=== PATIENT | male | born 1980 | race Asian ===

== ENCOUNTER 2022-12-25 10:47 | Inpatient (IN) ==
[2022-12-25 11:53] LABS: Basophils # (auto) 0.09 K/uL (0.00-0.20); Basophils % (auto) 0.6 %; Eosinophils # (auto) 0.36 K/uL (0.00-0.50); Eosinophils % (auto) 2.5 %; Hematocrit (blood only) 44.1 % (42.0-52.0); Hemoglobin 15.6 g/dl (14.0-18.0); Immature Granulocytes # (auto) 0.06 K/uL (0.01-0.20); Immature Granulocytes % (auto) 0.4 %; Lymphocytes % (auto) 15.3 %; Mean Corpuscular Hemoglobin 31.7 pg (25.0-34.0); Mean Corpuscular Hgb Conc 35.4 g/dL (32.0-36.0); Mean Corpuscular Volume 89.6 fL (80.0-100.0); Mean Platelet Volume 9.3 fL (9.4-12.4); Monocytes # (auto) 0.77 K/uL (0.11-0.59); Monocytes % (auto) 5.4 %; Neutrophils # (auto) 10.87 K/uL (1.40-6.50); Neutrophils % (auto) 75.8 %; Platelet Count 285 K/uL (130-400); RDW Coefficient of Variation 12.5 % (11.5-14.5); RDW Standard Deviation 41.4 fL (36.4-46.3); Red Blood Count 4.92 M/uL (4.70-6.10); White Blood Count 14.35 K/ul (4.8-10.8)
[2022-12-25 12:04] LABS: Albumin Globulin Ratio 1.8 (0.9-2); Albumin Level 4.6 gm/dl (3.4-5.0); BUN Creatinine Ratio 18.8 (10-20); Bilirubin,Total 0.9 mg/dl (0.2-1.0); Calcium 9.6 mg/dl (8.6-10.3); Creatinine Clr Calc Pharmacy 134.7 ml/min; Est GFR (African American) 129.5 ml/min; Est GFR (Non-African American) 111.7 ml/min; Globulin 2.5 gm/dl (2.5-4.0); Potassium 3.9 mmol/L (3.5-5.1); Total Protein 7.1 gm/dl (6.0-8.3)
[2022-12-25] MEDS ORDERED: OPTIRAY 320 100ml IV ONE (13:07)
--- NOTE | 2022-12-25 13:10 | Emergency Department Note ---
Impression & Plan Diverticulitis, Abscess of sigmoid colon ED Provider Note NAME: KARLA KUMARI AGE: 41 SEX: M ARRIVES VIA: Walk-In INFORMANT: Patient, ED PROVIDER(S): Maranda Mendenhall MD CHIEF COMPLAINT: Right lower quadrant pain PLAN: Disposition: Admission Condition: Good Outpatient prescription management: None Referral: MEDICAL DECISION MAKING: This is a 41-year-old male presents for lower quadrant pain. Patient referred from [facility]. Patient has voluntary guarding bilateral quadrant to palpation. Concern for appendicitis with patient's blood work showing leukocytosis to 14 at this time. Patient not tachycardic hypotensive or febrile. We will proceed with CT abdomen/pelvis to rule out appendicitis versus other intra-abdominal pathology. Patient CT imaging reveals a diverticulitis as well as colonic abscess, small. Discussed with Dr. Strong, general surgery who recommends admission for IV antibiotics. Discussed with hospitalist for admission of diverticulitis and colonic abscess. Patient made aware of findings. Triage Nursing notes reviewed and agree them. Additional history obtained from Prior medical records reviewed Vital Signs: reviewed and remarkable for no significant abnormalities Differential diagnosis: Appendicitis, diverticulitis, SBO, pancreatitis, cholecystitis ER treatment provided: Antibiotics Diagnostics interpreted by me: ECG: None Cardiac Monitoring: None Laboratory studies: See below Imaging studies: See below Consultation(s): toya Strong HPI: 41/M arrives for evaluation of bilateral quadrant pain. Patient notes that last night he was cooking dinner when he started noticing a slight pain in his right lower quadrant. He notes that it was worse with movement. Progressively worsened to the point where he sought medical help this morning at [facility]. They sent him here for further evaluation. Patient has he has had no diarrhea, nausea or vomiting. He does note pain getting worse, worse with movement as previously stated, not worse with urination. No hematuria that he is noted. No dysuria. No flank pain or back pain. No chest pain, shortness of breath ROS: See above HPI for pertinent positives & negatives. A total of 10 systems reviewed and were otherwise negative. PAST MEDICAL HISTORY:See Below PAST SURGICAL HISTORY:See Below FAMILY HISTORY:See Below SOCIAL HISTORY:See Below HOME MEDICATIONS:See Below ALLERGIES:See Below VITALS:See Below PHYSICAL EXAMINATION: General: resting comfortably in no acute distress Head: Normocephalic and atraumatic Eyes: Normal inspection, extraocular muscles intact, no conjunctival pallor Ear, nose, throat: Normal external exam Neck: Normal range of motion Respiratory: Patient is in no respiratory distress, lungs clear to auscultation bilaterally Cardiovascular: RRR without murmur appreciated GI: Soft, right lower quadrant tenderness with guarding, no rebound Extremities: pulses intact with good cap refills, no LE pitting edema or calf tenderness Neuro: The patient awake and alert, appropriately conversive,no focal decifits Skin: Warm, dry, and intact Maranda Mendenhall MD Past Med/Surg History Medical History No significant past medical history Surgical History No significant past surgical history Social History (Updated 04/01/21 @ 21:04 by Zuhair Barbosa) Smoking Status: Current every day smoker Tobacco Type: Cigarettes marital status: Single Feels Safe at Home: Yes Allergies Allergies Allergy/AdvReac Type Severity Reaction Status Date / Time No Known Allergies Allergy Unverified 12/25/22 15:23 Home Meds Home Medications Medication Instructions Recorded Confirmed alprazolam 0.5 mg tablet 0.5 mg PO DAILY PRN Anxiety 12/25/22 12/25/22 buspirone 5 mg tablet 5 mg PO AMHS 12/25/22 12/25/22 fluoxetine 40 mg capsule 40 mg PO QAM 12/25/22 12/25/22 Results & Data (ED) Vital Signs Vital Signs - 24 hr 12/25/22 11:12 12/25/22 13:41 12/25/22 15:43 Temperature 36.3 C L Temperature Source Temporal Artery Scan Pulse Rate 62 Pulse Rate [Right Finger] 67 97 H Pulse Rhythm [Right Finger] Regular Pulse Strength [Right Finger] Normal Respiratory Rate 18 18 18 Respiratory Effort / Characteristics Non-Labored Non-Labored Spontaneous Respiratory Depth Normal Normal Respiratory Pattern Regular Regular Blood Pressure 115/80 Blood Pressure [Right Arm] 133/65 120/78 Blood Pressure Mean 91 Blood Pressure Mean [Right Arm] 87 92 Blood Pressure Position [Right Arm] Lying Pulse Oximetry 98 98 98 Oxygen Delivery Method Room Air Room Air Room Air Sepsis Recent Fever Within 48 Hours No Sepsis New/Unexplained Change in Mental Status N/A Sepsis Action Taken by Nursing No Action Required Laboratory Data 12/25/22 11:27 12/25/22 11:27 Lab Results 12/25/22 12/25/22 12/25/22 Range/Units 11:27 11:27 13:03 WBC 14.35 H (4.8-10.8) K/ul RBC 4.92 (4.70-6.10) M/uL Hgb 15.6 (14.0-18.0) g/dl Hct 44.1 (42.0-52.0) % MCV 89.6 (80.0-100.0) fL MCH 31.7 (25.0-34.0) pg MCHC 35.4 (32.0-36.0) g/dL RDW Std Deviation 41.4 (36.4-46.3) fL RDW Coeff of Esteban 12.5 (11.5-14.5) % Plt Count 285 (130-400) K/uL MPV 9.3 L (9.4-12.4) fL Immature Gran % (Auto) 0.4 % Neut % (Auto) 75.8 % Lymph % (Auto) 15.3 % [place] % (Auto) 5.4 % Eos % (Auto) 2.5 % Baso % (Auto) 0.6 % Neut # (Auto) 10.87 H (1.40-6.50) K/uL Lymph # (Auto) 2.20 (1.20-3.40) K/uL [place] # (Auto) 0.77 H (0.11-0.59) K/uL Eos # (Auto) 0.36 (0.00-0.50) K/uL Baso # (Auto) 0.09 (0.00-0.20) K/uL Immature Gran # (Auto) 0.06 (0.01-0.20) K/uL Sodium 140 (136-145) mmol/L Potassium 3.9 (3.5-5.1) mmol/L Chloride 107 (98-107) mmol/L Carbon Dioxide 29 (21-32) mmol/L Anion Gap 4 (3-11) BUN 15 (6-23) mg/dl Creatinine 0.80 (0.6-1.4) mg/dl Est Cr Clr Drug Dosing 134.7 ml/min Est GFR ( Amer) 129.5 ml/min Est GFR (Non-Af Amer) 111.7 ml/min BUN/Creatinine Ratio 18.8 (10-20) Glucose 111 H (70-99(Fasting)) mg/dl Calcium 9.6 (8.6-10.3) mg/dl Total Bilirubin 0.9 (0.2-1.0) mg/dl AST 21 (13-39) U/L ALT 19 (7-52) U/L Alkaline Phosphatase 57 (34-104) U/L Total Protein 7.1 (6.0-8.3) gm/dl Albumin 4.6 (3.4-5.0) gm/dl Globulin 2.5 (2.5-4.0) gm/dl Albumin/Globulin Ratio 1.8 (0.9-2) Lipase 16 (11-82) U/L Urine Color Dark Yellow Urine Appearance Clear (Clear) Urine pH 6.5 (4.5-7.5) Ur Specific [place] 1.025 (1.000-1.030) Urine Protein Negative (Negative) Urine Glucose (UA) Negative (Negative) Urine Ketones Trace H (Negative) Urine Blood Trace H (Negative) Urine Nitrite Negative (Negative) Urine Bilirubin Negative (Negative) Urine Urobilinogen Negative (Negative) Ur Leukocyte Esterase Negative (Negative) Urine WBC (Auto) 1-5 (0-5) /hpf Urine RBC (Auto) 10-30 H (0-4) /hpf U Hyaline Cast (Auto) 1-5 (0-5) /lpf U Epithel Cells (Auto) >30 H (0-5) /lpf Urine Bacteria (Auto) Negative (Negative) Administered Medications Nicotine (Nicotine 21 Mg/24 Hr Tdsy) 21 mg TD QAM MARCOS Stop: 01/24/23 14:59 Last Admin: 12/25/22 15:39 Dose: 21 mg Documented By: POLY Discontinued Medications Ceftriaxone Sodium (Ceftriaxone Sodium 2000mg/50ml D5w) 2,000 mg IV ONE STA Stop: 12/25/22 15:52 Last Admin: 12/25/22 16:04 Dose: 2,000 mg Documented By: POLY Metronidazole (Flagyl) 500 mg in 100 mls @ 100 mls/hr IV NOW STA Stop: 12/25/22 15:35 Last Infusion: 12/25/22 16:49 Dose: 0 mls/hr Documented By: Admin: 12/25/22 15:41 Dose: 100 mls/hr Documented By: POLY Acetaminophen (Ofirmev) 1,000 mg in 100 mls @ 400 mls/hr IV NOW STA Stop: 12/25/22 15:38 Last Infusion: 12/25/22 16:33 Dose: 0 mls/hr Documented By: Admin: 12/25/22 15:38 Dose: 400 mls/hr Documented By: POLY Ioversol (Optiray 320 100ml) 90 ml IV ONCE ONE Stop: 12/25/22 13:08 Last Admin: 12/25/22 13:07 Dose: 90 ml Documented By: XIMENA Imaging Data Radiologist's Impression: Abdomen/Pelvis CT 12/25/22 11:52 CT abd pelvis IV con only CLINICAL HISTORY: RLQ pain, gauding TECHNIQUE: Helical axial images of the abdomen and pelvis were obtained and displayed. Automated dose lowering techniques and/or adjustment according to patient size were utilized for this exam. This exam was performed with intravenous contrast. CT DOSE: 1121.73 mGy.cm COMPARISON: None available at the time of this dictation. FINDINGS: Lower chest: No acute abnormality. Liver: Unremarkable. No focal lesions are seen. Gallbladder and biliary tree: The gallbladder is contracted. No intra- or extrahepatic biliary ductal dilation. Pancreas: Unremarkable, no focal lesions. Spleen: Splenule is incidentally noted. Adrenals: Unremarkable. Kidneys and ureters: Unremarkable. Bladder: Limited evaluation due to underdistention. Reproductive organs: Unremarkable. Bowel: There is focal wall thickening in the cecum. Numerous diverticula are seen in the ascending colon. The appendix is normal. Lymph nodes Retroperitoneal: Unremarkable. Pelvic: Unremarkable. Mesenteric: Subcentimeter nodes are seen most prominently in the right lower quadrant. Peritoneum: Fat stranding is noted in the right lower quadrant. There is a fluid collection in the region of the lateral wall of the cecum measuring approximately 19 x 24 mm in diameter. No evidence of pneumoperitoneum. Vessels: Unremarkable. Abdominal wall: Unremarkable. Bones: Unremarkable. IMPRESSION: Wall thickening and numerous diverticula in the cecum compatible with cecal diverticulitis. There may be a small abscess in the lateral colon wall versus atypical appearance of inflamed colonic. No griffin perforation. The appendix is normal. ACT 112: Negative or not required by law. Electronically signed by: Calvin Aguillon M.D. 12/25/2022 2:20 PM Discharge Plan Visit Data Chief Complaint: Abdominal Pain Stated Complaint: [facility] REFERRED, R SIDED ABDOMINAL PAIN ED Provider: Maranda Mendenhall Discharge Problem: Diverticulitis, Abscess of sigmoid colon Forms Stand Alone Forms: My [facility] Prescriptions Prescriptions: No Action fluoxetine 40 mg capsule 40 mg PO QAM buspirone 5 mg tablet 5 mg PO AMHS alprazolam 0.5 mg tablet 0.5 mg PO DAILY PRN (Reason: Anxiety) Referrals Referrals: Wilfrido Ramirez DO [Primary Care Provider] -
[2022-12-25 13:21] LABS: Appearance Urine Clear (Clear); Bacteria Urine Automated Negative (Negative); Bilirubin Urine Negative (Negative); Blood Urine Trace (Negative); Color Urine Dark Yellow; Epithelial Cell Urine Auto >30 /lpf (0-5); Glucose Urine UA Negative (Negative); Ketones Urine Trace (Negative); Leukocyte Esterase Urine Negative (Negative); Nitrite Urine Negative (Negative); Protein Urine Negative (Negative); Specific Gravity Urine 1.025 (1.000-1.030); Urobilinogen Urine Negative (Negative); pH Urine 6.5 (4.5-7.5)
--- NOTE | 2022-12-25 14:22 | CT Scan Report ---
CT abd pelvis IV con only CLINICAL HISTORY: RLQ pain, gauding TECHNIQUE: Helical axial images of the abdomen and pelvis were obtained and displayed. Automated dose lowering techniques and/or adjustment according to patient size were utilized for this exam. This e xam was performed with intravenous contrast. CT DOSE: 1121.73 mGy.cm COMPARISON: None available at the time of this dictation. FINDINGS: Lower chest: No acute abnormality. Liver: Unremarkable. No focal lesions are seen. Gallbladder and biliary tree: The gallbladder is contracted. No intra- or extrahepatic biliary ductal dilation. Pancreas: Unremarkable, no focal lesions. Spleen: Splenule is incidentally noted. Adrenals: Unremarkable. Kidneys and ureters: Unremarkable. Bladder: Limited evaluation due to underdistention. Reproductive organs: Unremarkable. Bowel: There is focal wall thickening in the cecum. Numerous diverticula are seen in the ascending co je. The appendix is normal. Lymph nodes Retroperitoneal: Unremarkable. Pelvic: Unremarkable. Mesenteric: Subcentimeter nodes are seen most prominently in the right lower quadrant. Peritoneum: Fat stranding is noted in the right lower quadrant. There is a fluid collection in the re gion of the lateral wall of the cecum measuring approximately 19 x 24 mm in diameter. No evidence of pneumoperitoneum. Vessels: Unremarkable. Abdominal wall: Unremarkable. Bones: Unremarkable. IMPRESSION: Wall thickening and numerous diverticula in the cecum compatible with cecal diverticulitis. There may be a small abscess in the lateral colon wall versus atypical appearance of inflamed colonic. No bridget k perforation. The appendix is normal. ACT 112: Negative or not required by law. Electronically signed by: Calvin Aguillon M.D. 12/25/2022 2:20 PM
[2022-12-25] MEDS ORDERED: cefTRIAXone SODIUM 2,000 MG in DEXTROSE 5 % MINI-B 50 ML IV STA (14:36)
[2022-12-25] MEDS ORDERED: metroNIDAZOLE 500 MG/100 ML BAG IV STA (14:36)
[2022-12-25] MEDS ORDERED: NICOTINE 21 MG/24 HR TDSY TD SCH (15:00)
[2022-12-25] MEDS ORDERED: ACETAMINOPHEN 1,000 MG/100 ML VIAL IV STA (15:24)
[2022-12-25] MEDS ORDERED: cefTRIAXone SODIUM 2000MG/50ML D5W IV STA (15:51)
[2022-12-25] MEDS ORDERED: LACTATED RINGER'S 1,000 ML IV SCH (18:45)
[2022-12-25] MEDS ORDERED: HYDROmorphone INJ 0.5 MG/0.5 ML SYR IV STA (19:04)
[2022-12-25] MEDS ORDERED: ONDANSETRON INJ 2 MG/ML 2 ML VIAL IV PRN (19:24)
[2022-12-25] MEDS ORDERED: PIPER/TAZO 4.5g in D5W MINI-B 100 ML IV ONE (19:30)
[2022-12-25] MEDS ORDERED: PIPERACILLIN/TAZOBACTAM 4.5 GM in DEXTROSE 5% MINI-B 100 ML IV SCH (19:30)
[2022-12-25] MEDS: ENOXAPARIN INJ 40 MG/0.4 ML SYR SQ SCH (19:55)
--- NOTE | 2022-12-25 21:57 | History & Physical Report ---
Date of Service December 25, 2022 Assessment & Plan (1) Diverticulitis: (2) Abscess of sigmoid colon: (3) Anxiety: (4) Bipolar 2 disorder: (5) Prediabetes: Plan Mr. Barahona is a 41 year old gentleman with history of bipolar d/o/anxiety, current tobacco use, prediabetes, who is admitted for management and eval of diverticulitis with abscess formation. Patient is pain free at time of exam and endorses appetite. ED reports discussion with general surgery, no acute surgical indications. #Diverticulitis c/b abscess formation #Leukocytosis -CT without signs of appendicitis, details above -appears well, non toxic, leukocytosis likely secondary to ongoin inflammation -Continue IV abx with zosyn -Gastro and gen surg consults for recommendations regarding next interventions, duration of abx, follow up imaging, ?scope indications #Anxiety #Bipolar -Continue prozac, buspar, and prn alprazolam #Prediabetes -Stable, no idication for SSI at this time #Tobacco use -Nicoderm patch 14 daily given daily 1/2 pack use -Patient would like to discuss additional therapies for cessation upon DC DVT lovenox Lytes prn CLD Bowel regimen prn Admit to med/surg I spent a total of 60 minutes coordinating, documenting, and providing care for this patient excluding time spent in the performance of separately billed services. Admission and Anticipated Discharge Date Admission Date: December 25, 2022 History of Present Illness Chief Complaint: Abdominal pain, diverticulitis Primary Care Provider: Wilfrido Ramirez DO Mr. Barahona is a 41 year old gentleman with history of bipolar d/o/anxiety, current tobacco use, prediabetes, who presented to [facility] ED due to acute onset abdominal pain that started the evening of 12/25. Patient states he was in usual stated of health when he noted a sharp, predominately RLQ pain. 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 He denies any changes to his bowel habits, stating all of his stools have been "normal." He denies any bloody output, to include melena, hematochezia. He denies nausea or vomiting, or any infectious concerns for that matter. Patient denies ever having cscope or egd. Upon arrival to ED, patient's VS were stable. Labs revealed leukocytosis to 14.35. CT AP revealed fat stranding in RLQ, with a fluid collection in lateral wall of cecum 19x24 mm, appendix appeared normal. Surgery was consulted, who felt there was no urgent need for surgery per ED provider--and to manage patient for diverticulitis. s/p CTX and flagyl Patient to be admitted for IV abx and further management of diverticulitis with abscess formation Allergies Allergy/AdvReac Type Severity Reaction Status Date / Time No Known Allergies Allergy Unverified 12/25/22 15:23 Home Medications Medication Instructions Recorded Confirmed Type alprazolam 0.5 mg tablet 0.5 mg PO DAILY PRN Anxiety 12/25/22 12/25/22 History buspirone 5 mg tablet 5 mg PO AMHS 12/25/22 12/25/22 History fluoxetine 40 mg capsule 40 mg PO QAM 12/25/22 12/25/22 History Past Med/Surg History Medical History (Updated 12/25/22 @ 21:56 by Loreta Bahena MD) Anxiety Bipolar 2 disorder Prediabetes Surgical History No significant past surgical history Family History (Updated 12/25/22 @ 21:59 by Loreta Bahena MD) Other Heart disease Hypertension Social History Smoking Status: Current every day smoker Tobacco Type: Cigarettes marital status: Single Feels Safe at Home: Yes Review of Systems Review of Systems: Constitutional: (-) fever/chills, (-) recent loss of weight, (-) appetite changes, (-) night sweats. Head: (-) headache, (-) dizziness. Eye: (-) blurring of vision, (-) double vision, (-) redness. Ear: (-) hearing loss, (-) discharge, (-) vertigo Nose: (-) discharge, (-) bleeding, (-) congestion, (-) post nasal drip. Throat: (-) sore throat, (-) hoarseness of voice, (-) odynophagia. Cardiovascular: (-) chest pain, (-) palpitations, (-) syncope, (-) orthopnea, (- ) PND, (-) leg swelling. Respiratory: (-) shortness of breath, (-) cough, (-) wheezing, (-) hemoptysis. Neuro: (-) weakness in extremities, (-) numbness, (-) tingling, (-) tremor. Gastrointestinal: (+) belly pain, (-) belly distension, (-) nausea, (-) vomiting, (-) diarrhea, (-) constipation, (-) hematemesis, (-) hematochezia, (-) bowel incontinence Genitourinary: (-) hematuria, (-) dysuria, (-) polyuria, (-) hesitancy, (-) frequency, (-) urinary incontinence. Musculoskeletal: (-) myalgia, (-) arthralgia. Skin: (-) rashes. Endocrine: (-) heat/cold intolerance. Physical Exam Physical Exam: GENERAL APPEARANCE: AxOx4, flat effect HEENT: NC, AT. MMM. EOMI, clear conjunctiva, oropharynx clear. NECK: Supple without lymphadenopathy. No stiffness or restricted ROM. HEART: Normal rate and regular rhythm, normal S1/S1, no m/r/g LUNGS: CTAB, moving air well. No crackles or wheezes are heard. ABDOMEN: Soft, nontender, nondistended with good bowel sounds heard. BACK: No CVAT, no obvious deformity. EXTREMITIES: Without cyanosis, clubbing or edema. NEUROLOGICAL: Grossly nonfocal. Alert and oriented, moving all 4 extremities. CN not formally tested but appear grossly intact. Results & Data Results & Data Vital Signs (Past 12 Hours) Vital Signs Temp Pulse Pulse Resp BP BP Pulse Ox 12/25/22 18:51 72 18 135/76 98 12/25/22 15:43 97 H 18 120/78 98 12/25/22 13:41 67 18 133/65 98 12/25/22 11:12 36.3 C L 62 18 115/80 98 O2 Del Method 12/25/22 18:51 Room Air 12/25/22 15:43 Room Air 12/25/22 13:41 Room Air 12/25/22 11:12 Room Air Laboratory Results Short CBC 12/25/22 Range/Units 11:27 WBC 14.35 H (4.8-10.8) K/ul Hgb 15.6 (14.0-18.0) g/dl Hct 44.1 (42.0-52.0) % Plt Count 285 (130-400) K/uL BMP 12/25/22 11:27 Sodium 140 Potassium 3.9 Chloride 107 Carbon Dioxide 29 BUN 15 Creatinine 0.80 Glucose 111 H Calcium 9.6 Liver Function 12/25/22 Range/Units 11:27 Total Bilirubin 0.9 (0.2-1.0) mg/dl AST 21 (13-39) U/L ALT 19 (7-52) U/L Alkaline Phosphatase 57 (34-104) U/L Albumin 4.6 (3.4-5.0) gm/dl Urine 12/25/22 Range/Units 13:03 Urine Color Dark Yellow Urine Appearance Clear (Clear) Urine pH 6.5 (4.5-7.5) Ur Specific [place] 1.025 (1.000-1.030) Urine Protein Negative (Negative) Urine Glucose (UA) Negative (Negative) Diagnostic Findings Abdomen/Pelvis CT 12/25/22 11:52 CT abd pelvis IV con only CLINICAL HISTORY: RLQ pain, gauding TECHNIQUE: Helical axial images of the abdomen and pelvis were obtained and displayed. Automated dose lowering techniques and/or adjustment according to patient size were utilized for this exam. This exam was performed with intravenous contrast. CT DOSE: 1121.73 mGy.cm COMPARISON: None available at the time of this dictation. FINDINGS: Lower chest: No acute abnormality. Liver: Unremarkable. No focal lesions are seen. Gallbladder and biliary tree: The gallbladder is contracted. No intra- or extrah epatic biliary ductal dilation. Pancreas: Unremarkable, no focal lesions. Spleen: Splenule is incidentally noted. Adrenals: Unremarkable. Kidneys and ureters: Unremarkable. Bladder: Limited evaluation due to underdistention. Reproductive organs: Unremarkable. Bowel: There is focal wall thickening in the cecum. Numerous diverticula are seen in the ascending colon. The appendix is normal. Lymph nodes Retroperitoneal: Unremarkable. Pelvic: Unremarkable. Mesenteric: Subcentimeter nodes are seen most prominently in the right lower quadrant. Peritoneum: Fat stranding is noted in the right lower quadrant. There is a fluid collection in the region of the lateral wall of the cecum measuring approximately 19 x 24 mm in diameter. No evidence of pneumoperitoneum. Vessels: Unremarkable. Abdominal wall: Unremarkable. Bones: Unremarkable. IMPRESSION: Wall thickening and numerous diverticula in the cecum compatible with cecal diverticulitis. There may be a small abscess in the lateral colon wall versus atypical appearance of inflamed colonic. No griffin perforation. The appendix is normal. ACT 112: Negative or not required by law. Electronically signed by: Calvin Aguillon M.D. 12/25/2022 2:20 PM Medications Administered Home Medications Medication Instructions Recorded Confirmed Last Taken alprazolam 0.5 mg tablet 0.5 mg PO DAILY PRN Anxiety 12/25/22 12/25/22 Unknown buspirone 5 mg tablet 5 mg PO AMHS 12/25/22 12/25/22 Unknown fluoxetine 40 mg capsule 40 mg PO QAM 12/25/22 12/25/22 Unknown Active Medications Generic Name Dose Route Start Last Admin Trade Name Freq PRN Reason Stop Dose Admin Enoxaparin Sodium 40 mg 12/25/22 19:45 12/25/22 19:55 Enoxaparin Inj 40 Mg/0.4 Ml Syr SQ 01/24/23 19:44 Not Given Q24H [facility] Nicotine 21 mg 12/25/22 15:00 12/25/22 15:39 Nicotine 21 Mg/24 Hr Tdsy TD 01/24/23 14:59 21 mg QAM [facility] Administration Code Status & VTE Plan VTE Prophylaxis Plan VTE Prophylaxis will be ordered: Yes
[2022-12-25] MEDS: ACETAMINOPHEN 325 MG TAB PO PRN (22:21)
[2022-12-25] MEDS: ALPRAZolam 0.5 MG TABLET PO PRN (22:21)
[2022-12-26] MEDS: PIPERACILLIN/TAZOBACTAM 4.5 GM in DEXTROSE 5% MINI-B 100 ML IV SCH ×3 (00:08→16:29)
[2022-12-26 07:48] LABS: Hemoglobin 14.9 g/dl (14.0-18.0); Mean Corpuscular Hemoglobin 32.1 pg (25.0-34.0); Mean Corpuscular Hgb Conc 35.5 g/dL (32.0-36.0); Mean Corpuscular Volume 90.5 fL (80.0-100.0); Mean Platelet Volume 9.7 fL (9.4-12.4); Platelet Count 263 K/uL (130-400); RDW Coefficient of Variation 12.6 % (11.5-14.5); RDW Standard Deviation 41.7 fL (36.4-46.3); Red Blood Count 4.64 M/uL (4.70-6.10); White Blood Count 9.53 K/ul (4.8-10.8)
[2022-12-26] MEDS: busPIRone 5 MG TAB PO SCH ×2 (08:01→20:11)
[2022-12-26] MEDS: FLUoxetine HCL 20 MG CAP PO SCH (08:01)
[2022-12-26 08:05] LABS: Albumin Globulin Ratio 1.6 (0.9-2); Albumin Level 4.1 gm/dl (3.4-5.0); BUN Creatinine Ratio 20.3 (10-20); Bilirubin,Total 0.9 mg/dl (0.2-1.0); Creatinine Clr Calc Pharmacy 145.6 ml/min; Est GFR (African American) 133.7 ml/min; Est GFR (Non-African American) 115.4 ml/min; Globulin 2.5 gm/dl (2.5-4.0); Magnesium 1.9 mg/dl (1.7-2.4); Phosphorus 3.8 mg/dl (2.5-4.9); Potassium 3.9 mmol/L (3.5-5.1); Total Protein 6.6 gm/dl (6.0-8.3)
--- NOTE | 2022-12-26 09:26 | Gastrointestinal Consultation ---
Date of Consultation December 26, 2022 Assessment & Plan (1) Diverticulitis: Pleasant man with right sided diverticulitis with fluid collection. This is not the side nor area we typically see diverticulitis in. However CT suggests that is what is going on and he has responded well to antibiotics. Concerni ng/confusing issue is whether this is an abscess or not. For now would continue antibiotics and see what general surgery has to say. Definitely needs colonoscopy in six weeks after recovery. As far as going home on oral antibiotics it would be best to see resolution of fluid collection before that happens. History of Present Illness Reason for Consultation: diverticulitis Attending Physician: Austen Saeed MD History of Present Illness 41 year old [place] man who was admitted with two days of abdominal pain in his right lower abdomen. No fever that he is aware of. Thinks he may have had "diverticulitis" in the past but has never seen a GI doctor for anything. Normally he has good bowel movements. He never sees blood. CT shows right sided inflammation with diverticulosis in ascending colon and a 14 X 19 mm fluid collection that may be an abscess or inflamed diverticulum. Currently he feels asymptomatic and wants to go home on oral antibiotics. Allergies Allergy/AdvReac Type Severity Reaction Status Date / Time No Known Allergies Allergy Unverified 12/25/22 15: Home Medications Medication Instructions Recorded Confirmed Type alprazolam 0.5 mg tablet 0.5 mg PO DAILY PRN Anxiety 12/25/22 12/25/22 History buspirone 5 mg tablet 5 mg PO AMHS 12/25/22 12/25/22 History fluoxetine 40 mg capsule 40 mg PO QAM 12/25/22 12/25/22 History Patient History Medical History Anxiety Bipolar 2 disorder Prediabetes Surgical History No significant past surgical history Family History Other Heart disease Hypertension Social History Smoking Status: Current every day smoker Tobacco Type: Cigarettes Do You Dip or Chew Tobacco: Yes (chew); Hx Alcohol Use: Yes Hx Substance Use: No Preferred Language: Kazakh 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 Beliefs That Will Affect Care: None marital status: Single Current Living Situation: Other Current Living Situation Comment: at home with his kids Feels Safe at Home: Yes Safety Concerns: Feels Safe At This Time Assistive Devices: None Review of Systems Review of Systems: All systems reviewed & are unremarkable except as noted in HPI & below Physical Exam Constitutional: WD/WN, vitals as above no acute distress Eyes: PERRL, conjunctivae normal, anicteric sclerae ENMT: external ear and nose normal, oropharynx normal Neck: trachea midline, no thyromegaly Respiratory: normal respiratory effort, lungs clear to auscultation Cardiovascular: RRR, no murmur, no edema Gastrointestinal (Abdomen): normal bowel sounds, soft, nontender, no hepatosplenomegaly Musculoskeletal: Extremities: no cyanosis and no clubbing Skin: no rashes, warm and dry Neurologic: PERRL, EOMI, accommodation nl, no face palsy, no dysarthria Psychiatric: Orientation: alert and oriented x 3 Results & Data Vital Signs (Past 12 Hours) Vital Signs Temp Pulse Pulse Resp BP BP Pulse Ox 12/26/22 08:00 36.6 C 77 18 125/71 94 12/25/22 22:48 12/25/22 22:10 36.8 C 64 14 123/75 95 O2 Del Method 12/26/22 08:00 Room Air 12/25/22 22:48 Room Air 12/25/22 22:10 Room Air Laboratory Results 12/26/22 12/26/22 12/25/22 Range/Units 06:42 06:42 13:03 WBC 9.53 (4.8-10.8) K/ul RBC 4.64 L (4.70-6.10) M/uL Hgb 14.9 (14.0-18.0) g/dl Hct 42.0 (42.0-52.0) % MCV 90.5 (80.0-100.0) fL MCH 32.1 (25.0-34.0) pg MCHC 35.5 (32.0-36.0) g/dL RDW Std Deviation 41.7 (36.4-46.3) fL RDW Coeff of Esteban 12.6 (11.5-14.5) % Plt Count 263 (130-400) K/uL MPV 9.7 (9.4-12.4) fL Immature Gran % (Auto) % Neut % (Auto) % Lymph % (Auto) % [place] % (Auto) % Eos % (Auto) % Baso % (Auto) % Neut # (Auto) (1.40-6.50) K/uL Lymph # (Auto) (1.20-3.40) K/uL [place] # (Auto) (0.11-0.59) K/uL Eos # (Auto) (0.00-0.50) K/uL Baso # (Auto) (0.00-0.20) K/uL Immature Gran # (Auto) (0.01-0.20) K/uL Sodium 140 (136-145) mmol/L Potassium 3.9 (3.5-5.1) mmol/L Chloride 107 (98-107) mmol/L Carbon Dioxide 29 (21-32) mmol/L Anion Gap 4 (3-11) BUN 15 (6-23) mg/dl Creatinine 0.74 (0.6-1.4) mg/dl Est Cr Clr Drug Dosing 145.6 ml/min Est GFR ( Amer) 133.7 ml/min Est GFR (Non-Af Amer) 115.4 ml/min BUN/Creatinine Ratio 20.3 H (10-20) Glucose 95 (70-99(Fasting)) mg/dl Calcium 9.0 (8.6-10.3) mg/dl Phosphorus 3.8 (2.5-4.9) mg/dl Magnesium 1.9 (1.7-2.4) mg/dl Total Bilirubin 0.9 (0.2-1.0) mg/dl AST 17 (13-39) U/L ALT 15 (7-52) U/L Alkaline Phosphatase 48 (34-104) U/L Total Protein 6.6 (6.0-8.3) gm/dl Albumin 4.1 (3.4-5.0) gm/dl Globulin 2.5 (2.5-4.0) gm/dl Albumin/Globulin Ratio 1.6 (0.9-2) Lipase (11-82) U/L Urine Color Dark Yellow Urine Appearance Clear (Clear) Urine pH 6.5 (4.5-7.5) Ur Specific [place] 1.025 (1.000-1.030) Urine Protein Negative (Negative) Urine Glucose (UA) Negative (Negative) Urine Ketones Trace H (Negative) Urine Blood Trace H (Negative) Urine Nitrite Negative (Negative) Urine Bilirubin Negative (Negative) Urine Urobilinogen Negative (Negative) Ur Leukocyte Esterase Negative (Negative) Urine WBC (Auto) 1-5 (0-5) /hpf Urine RBC (Auto) 10-30 H (0-4) /hpf U Hyaline Cast (Auto) 1-5 (0-5) /lpf U Epithel Cells (Auto) >30 H (0-5) /lpf Urine Bacteria (Auto) Negative (Negative) 12/25/22 12/25/22 Range/Units 11:27 11:27 WBC 14.35 H (4.8-10.8) K/ul RBC 4.92 (4.70-6.10) M/uL Hgb 15.6 (14.0-18.0) g/dl Hct 44.1 (42.0-52.0) % MCV 89.6 (80.0-100.0) fL MCH 31.7 (25.0-34.0) pg MCHC 35.4 (32.0-36.0) g/dL RDW Std Deviation 41.4 (36.4-46.3) fL RDW Coeff of Esteban 12.5 (11.5-14.5) % Plt Count 285 (130-400) K/uL MPV 9.3 L (9.4-12.4) fL Immature Gran % (Auto) 0.4 % Neut % (Auto) 75.8 % Lymph % (Auto) 15.3 % [place] % (Auto) 5.4 % Eos % (Auto) 2.5 % Baso % (Auto) 0.6 % Neut # (Auto) 10.87 H (1.40-6.50) K/uL Lymph # (Auto) 2.20 (1.20-3.40) K/uL [place] # (Auto) 0.77 H (0.11-0.59) K/uL Eos # (Auto) 0.36 (0.00-0.50) K/uL Baso # (Auto) 0.09 (0.00-0.20) K/uL Immature Gran # (Auto) 0.06 (0.01-0.20) K/uL Sodium 140 (136-145) mmol/L Potassium 3.9 (3.5-5.1) mmol/L Chloride 107 (98-107) mmol/L Carbon Dioxide 29 (21-32) mmol/L Anion Gap 4 (3-11) BUN 15 (6-23) mg/dl Creatinine 0.80 (0.6-1.4) mg/dl Est Cr Clr Drug Dosing 134.7 ml/min Est GFR ( Amer) 129.5 ml/min Est GFR (Non-Af Amer) 111.7 ml/min BUN/Creatinine Ratio 18.8 (10-20) Glucose 111 H (70-99(Fasting)) mg/dl Calcium 9.6 (8.6-10.3) mg/dl Phosphorus (2.5-4.9) mg/dl Magnesium (1.7-2.4) mg/dl Total Bilirubin 0.9 (0.2-1.0) mg/dl AST 21 (13-39) U/L ALT 19 (7-52) U/L Alkaline Phosphatase 57 (34-104) U/L Total Protein 7.1 (6.0-8.3) gm/dl Albumin 4.6 (3.4-5.0) gm/dl Globulin 2.5 (2.5-4.0) gm/dl Albumin/Globulin Ratio 1.8 (0.9-2) Lipase 16 (11-82) U/L Urine Color Urine Appearance (Clear) Urine pH (4.5-7.5) Ur Specific [place] (1.000-1.030) Urine Protein (Negative) Urine Glucose (UA) (Negative) Urine Ketones (Negative) Urine Blood (Negative) Urine Nitrite (Negative) Urine Bilirubin (Negative) Urine Urobilinogen (Negative) Ur Leukocyte Esterase (Negative) Urine WBC (Auto) (0-5) /hpf Urine RBC (Auto) (0-4) /hpf U Hyaline Cast (Auto) (0-5) /lpf U Epithel Cells (Auto) (0-5) /lpf Urine Bacteria (Auto) (Negative) Diagnostic Findings Abdomen/Pelvis CT 12/25/22 11:52 CT abd pelvis IV con only CLINICAL HISTORY: RLQ pain, gauding TECHNIQUE: Helical axial images of the abdomen and pelvis were obtained and displayed. Automated dose lowering techniques and/or adjustment according to patient size were utilized for this exam. This exam was performed with intravenous contrast. CT DOSE: 1121.73 mGy.cm COMPARISON: None available at the time of this dictation. FINDINGS: Lower chest: No acute abnormality. Liver: Unremarkable. No focal lesions are seen. Gallbladder and biliary tree: The gallbladder is contracted. No intra- or extrahepatic biliary ductal dilation. Pancreas: Unremarkable, no focal lesions. Spleen: Splenule is incidentally noted. Adrenals: Unremarkable. Kidneys and ureters: Unremarkable. Bladder: Limited evaluation due to underdistention. Reproductive organs: Unremarkable. Bowel: There is focal wall thickening in the cecum. Numerous diverticula are seen in the ascending colon. The appendix is normal. Lymph nodes Retroperitoneal: Unremarkable. Pelvic: Unremarkable. Mesenteric: Subcentimeter nodes are seen most prominently in the right lower quadrant. Peritoneum: Fat stranding is noted in the right lower quadrant. There is a fluid collection in the region of the lateral wall of the cecum measuring approximately 19 x 24 mm in diameter. No evidence of pneumoperitoneum. Vessels: Unremarkable. Abdominal wall: Unremarkable. Bones: Unremarkable. IMPRESSION: Wall thickening and numerous diverticula in the cecum compatible with cecal diverticulitis. There may be a small abscess in the lateral colon wall versus atypical appearance of inflamed colonic. No griffin perforation. The appendix is normal. ACT 112: Negative or not required by law. Electronically signed by: Calvin Aguillon M.D. 12/25/2022 2:20 PM
[2022-12-26] MEDS: NICOTINE 14 MG/24 HR PATCH TD SCH (09:27)
--- NOTE | 2022-12-26 09:42 | Surgery Consultation ---
Date of Consultation December 26, 2022 Assessment & Plan (1) Diverticulitis: resolving advance diet switch to po abx soon Present on Admission?: Yes History of Present Illness Attending Physician: Austen Saeed MD History of Present Illness This is a 41year old male admitted through ED with acute abdominal pain. A CT scan shows diverticulitis with questionable abscess. He denies fever or chills. Currently completely asymptomatic. . Allergies Allergy/AdvReac Type Severity Reaction Status Date / Time No Known Allergies Allergy Unverified 12/25/22 15: Home Medications Medication Instructions Recorded Confirmed Type alprazolam 0.5 mg tablet 0.5 mg PO DAILY PRN Anxiety 12/25/22 12/25/22 History buspirone 5 mg tablet 5 mg PO AMHS 12/25/22 12/25/22 History fluoxetine 40 mg capsule 40 mg PO QAM 12/25/22 12/25/22 History Patient History Medical History Anxiety Bipolar 2 disorder Prediabetes Surgical History No significant past surgical history Family History Other Heart disease Hypertension Social History Smoking Status: Current every day smoker Tobacco Type: Cigarettes Do You Dip or Chew Tobacco: Yes (chew); Hx Alcohol Use: Yes Hx Substance Use: No 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 Beliefs That Will Affect Care: None marital status: Single Current Living Situation: Other Current Living Situation Comment: at home with his kids Feels Safe at Home: Yes Safety Concerns: Feels Safe At This Time Assistive Devices: None Review of Systems Constitutional: no fever, no chills and no anorexia Eyes: no problem reported Ear, Nose, Mouth, Throat: no problem reported Respiratory: no cough and no dyspnea Cardiovascular: no chest pain Gastrointestinal: no abdominal pain, no nausea, no vomiting and no change in bowel habits Genitourinary: no dysuria Integumentary: no rash and no lesions Neurologic: no localized weakness and no generalized weakness Psychiatric: no behavioral changes Endocrine: no fatigue Hematologic / Lymphatic: no easy bleeding and no easy bruising Physical Exam Constitutional: WD/WN, vitals as above Eyes: PERRL, conjunctivae normal, anicteric sclerae Neck: trachea midline Respiratory: normal respiratory effort, lungs clear to auscultation Cardiovascular: RRR, no murmur, no edema Gastrointestinal (Abdomen): Inspection/Auscultation: abdomen normal to inspection and normal bowel sounds; abdomen not distended Percussion/Palpation: abdomen soft; abdomen nontender, no guarding and abdomen not rigid Musculoskeletal: Head/Neck/Chest: normocephalic and head atraumatic Skin: no rashes, warm and dry Results & Data Vital Signs (Past 12 Hours) Vital Signs Temp Pulse Pulse Resp BP BP Pulse Ox 12/26/22 08:00 36.5 C 69 18 105/71 94 12/25/22 22:48 12/25/22 22:10 36.8 C 64 14 123/75 95 O2 Del Method 12/26/22 08:00 Room Air 12/25/22 22:48 Room Air 12/25/22 22:10 Room Air Diagnostic Findings CT abd pelvis IV con only CLINICAL HISTORY: RLQ pain, gauding TECHNIQUE: Helical axial images of the abdomen and pelvis were obtained and displayed. Automated dose lowering techniques and/or adjustment according to patient size were utilized for this exam. This exam was performed with intravenous contrast. CT DOSE: 1121.73 mGy.cm COMPARISON: None available at the time of this dictation. FINDINGS: Lower chest: No acute abnormality. Liver: Unremarkable. No focal lesions are seen. Gallbladder and biliary tree: The gallbladder is contracted. No intra- or extrahepatic biliary ductal dilation. Pancreas: Unremarkable, no focal lesions. Spleen: Splenule is incidentally noted. Adrenals: Unremarkable. Kidneys and ureters: Unremarkable. Bladder: Limited evaluation due to underdistention. Reproductive organs: Unremarkable. Bowel: There is focal wall thickening in the cecum. Numerous diverticula are seen in the ascending colon. The appendix is normal. Lymph nodes Retroperitoneal: Unremarkable. Pelvic: Unremarkable. Mesenteric: Subcentimeter nodes are seen most prominently in the right lower quadrant. Peritoneum: Fat stranding is noted in the right lower quadrant. There is a fluid collection in the region of the lateral wall of the cecum measuring approxim ately 19 x 24 mm in diameter. No evidence of pneumoperitoneum. Vessels: Unremarkable. Abdominal wall: Unremarkable. Bones: Unremarkable. IMPRESSION: Wall thickening and numerous diverticula in the cecum compatible with cecal diverticulitis. There may be a small abscess in the lateral colon wall versus atypical appearance of inflamed colonic. No griffin perforation. The appendix is normal.
--- NOTE | 2022-12-26 11:47 | Hospitalist Progress Note ---
Date of Service December 26, 2022 Assessment & Plan (1) Diverticulitis: (2) Anxiety: (3) Bipolar 2 disorder: (4) Prediabetes: Plan Mr. Barahona is a 41 year old gentleman with history of bipolar d/o/anxiety, current tobacco use, prediabetes, who is admitted for management and eval of diverticulitis with abscess formation. #Diverticulitis with possible small abscess -CT Wall thickening and numerous diverticula in the cecum compatible with cecal diverticulitis. There may be a small abscess in the lateral colon wall versus atypical appearance of inflamed colonic. No griffin perforation. The appendix is alyx; -appears well, non toxic, leukocytosis resolved. -Continue IV Zosyn -Seen by GI and general surgery. Recommends noted. Continue IV antibiotics, advance diet as tolerated. -Colonoscopy in 6 weeks after recovery. #Anxiety/Bipolar -Continue prozac, buspar, and prn alprazolam #Prediabetes-Stable, no indication for SSI at this time #Tobacco use-continue NicoDerm patch DVT prophylaxis- sc lovenox Disposition-discharge home when medically stable, likely in 1 to 2 days Admission and Anticipated Discharge Date Admission Date: December 25, 2022 Subjective Patient was seen and examined at bedside. He feels much better. Now has minimal pain at right lower quadrant. No nausea or vomiting. No fever or chills. Had watery BM this morning, no blood. States he had similar condition about 5 years ago and was treated as outpatient but never had any colonoscopy done. Review of Systems Review of Systems: All systems reviewed & are unremarkable except as noted in Subjective Physical Exam Physical Exam: General: Lying comfortably in bed, not in distress, on room air HEENT: EOMI, ESTEBAN, MMM Chest: Clear breath sounds bilaterally, no wheezes or crackles CVS: Regular rate and rhythm, normal heart sounds, no murmur Abdomen: Soft, nontender, not distended, normal bowel sounds Neuro: Awake, alert, oriented, conversing well, non focal Extremities: No cyanosis, clubbing or edema Results & Data Results & Data Vital Signs (Past 12 Hours) Vital Signs Temp Pulse Resp BP Pulse Ox O2 Del Method 12/26/22 08:00 36.5 C 69 18 105/71 94 Room Air Laboratory Results Short CBC 12/25/22 12/26/22 Range/Units 11:27 06:42 WBC 14.35 H 9.53 (4.8-10.8) K/ul Hgb 15.6 14.9 (14.0-18.0) g/dl Hct 44.1 42.0 (42.0-52.0) % Plt Count 285 263 (130-400) K/uL BMP 12/25/22 12/26/22 11:27 06:42 Sodium 140 140 Potassium 3.9 3.9 Chloride 107 107 Carbon Dioxide 29 29 BUN 15 15 Creatinine 0.80 0.74 Glucose 111 H 95 Calcium 9.6 9.0 Liver Function 12/25/22 12/26/22 Range/Units 11:27 06:42 Total Bilirubin 0.9 0.9 (0.2-1.0) mg/dl AST 21 17 (13-39) U/L ALT 19 15 (7-52) U/L Alkaline Phosphatase 57 48 (34-104) U/L Albumin 4.6 4.1 (3.4-5.0) gm/dl Urine 12/25/22 Range/Units 13:03 Urine Color Dark Yellow Urine Appearance Clear (Clear) Urine pH 6.5 (4.5-7.5) Ur Specific [place] 1.025 (1.000-1.030) Urine Protein Negative (Negative) Urine Glucose (UA) Negative (Negative) Medications Administered Current Inpatient Medications Acetaminophen (Acetaminophen 325 Mg Tab) 650 mg PO Q4H PRN PRN Reason: pain/fever Stop: 01/24/23 19:23 Last Admin: 12/25/22 22:21 Dose: 650 mg Alprazolam (Alprazolam 0.5 Mg Tablet) 0.5 mg PO Q6H PRN PRN Reason: Anxiety Stop: 01/24/23 19:23 Last Admin: 12/25/22 22:21 Dose: 0.5 mg Buspirone HCl (Buspirone 5 Mg Tab) 5 mg PO AMHS MARCOS Stop: 01/25/23 08:59 Last Admin: 12/26/22 08:01 Dose: 5 mg Enoxaparin Sodium (Enoxaparin Inj 40 Mg/0.4 Ml Syr) 40 mg SQ Q24H [facility]ARCOS Stop: 01/24/23 19:44 Last Admin: 12/25/22 19:55 Dose: Not Given Fluoxetine HCl (Fluoxetine Hcl 20 Mg Cap) 40 mg PO QAM [facility] Stop: 01/25/23 08:59 Last Admin: 12/26/22 08:01 Dose: 40 mg Hydromorphone HCl (Hydromorphone Inj 0.5 Mg/0.5 Ml Syr) 0.5 mg IV Q6H PRN PRN Reason: Pain Stop: 01/08/23 19:03 Piperacillin Sod/Tazobactam (Sod 4.5 gm/ Dextrose) 100 mls @ 25 mls/hr IV Q8H [facility]; Protocol Stop: 01/05/23 00:29 Last Admin: 12/26/22 07:54 Dose: 25 mls/hr Miscellaneous (Remove Nicoderm Patch) 1 each N/A DAILY@0859 [facility] Stop: 01/25/23 08:58 Last Admin: 12/26/22 09:26 Dose: 1 each Nicotine (Nicotine 14 Mg/24 Hr Patch) 14 mg TD [facility] Stop: 01/25/23 08:59 Last Admin: 12/26/22 09:27 Dose: 14 mg Ondansetron HCl (Ondansetron Inj 2 Mg/Ml 2 Ml Vial) 4 mg IV Q6H PRN PRN Reason: Nausea Stop: 01/24/23 19:23
[2022-12-26] MEDS: HYDROmorphone INJ 0.5 MG/0.5 ML SYR IV PRN ×2 (12:57→19:56)
[2022-12-26] MEDS: ACETAMINOPHEN 325 MG TAB PO PRN (16:28)
[2022-12-26] MEDS: ENOXAPARIN INJ 40 MG/0.4 ML SYR SQ SCH (20:10)
[2022-12-26] MEDS: ALPRAZolam 0.5 MG TABLET PO PRN (21:47)
[2022-12-27] MEDS: PIPERACILLIN/TAZOBACTAM 4.5 GM in DEXTROSE 5% MINI-B 100 ML IV SCH ×4 (00:07→23:54)
[2022-12-27] MEDS: HYDROmorphone INJ 0.5 MG/0.5 ML SYR IV PRN ×2 (02:31→08:36)
[2022-12-27] MEDS ORDERED: HYDROmorphone INJ 0.5 MG/0.5 ML SYR IV STA (03:06)
[2022-12-27] MEDS: ENOXAPARIN INJ 40 MG/0.4 ML SYR SQ SCH (03:53)
[2022-12-27 07:25] LABS: Hematocrit (blood only) 40.9 % (42.0-52.0); Hemoglobin 14.1 g/dl (14.0-18.0); Mean Corpuscular Hemoglobin 31.7 pg (25.0-34.0); Mean Corpuscular Hgb Conc 34.5 g/dL (32.0-36.0); Mean Corpuscular Volume 91.9 fL (80.0-100.0); Mean Platelet Volume 9.5 fL (9.4-12.4); Platelet Count 259 K/uL (130-400); RDW Coefficient of Variation 12.4 % (11.5-14.5); RDW Standard Deviation 41.3 fL (36.4-46.3); Red Blood Count 4.45 M/uL (4.70-6.10); White Blood Count 8.84 K/ul (4.8-10.8)
[2022-12-27 07:27] LABS: BUN Creatinine Ratio 8.8 (10-20); Calcium 8.6 mg/dl (8.6-10.3); Creatinine Clr Calc Pharmacy 134.7 ml/min; Est GFR (African American) 129.5 ml/min; Est GFR (Non-African American) 111.7 ml/min; Potassium 3.8 mmol/L (3.5-5.1)
[2022-12-27] MEDS: FLUoxetine HCL 20 MG CAP PO SCH (07:44)
[2022-12-27] MEDS: NICOTINE 14 MG/24 HR PATCH TD SCH (07:44)
[2022-12-27] MEDS: busPIRone 5 MG TAB PO SCH ×2 (07:45→20:08)
--- NOTE | 2022-12-27 09:48 | Hospitalist Progress Note ---
Date of Service December 27, 2022 Assessment & Plan (1) Diverticulitis: (2) Anxiety: (3) Bipolar 2 disorder: (4) Prediabetes: Plan Mr. Barahona is a 41 year old gentleman with history of bipolar d/o/anxiety, current tobacco use, prediabetes, who is admitted for management and eval of diverticulitis with abscess formation. #Diverticulitis with possible small abscess -CT Wall thickening and numerous diverticula in the cecum compatible with cecal diverticulitis. There may be a small abscess in the lateral colon wall versus atypical appearance of inflamed colonic. No griffin perforation. The appendix is normal -appears well, non toxic, leukocytosis resolved. -Continue IV Zosyn -Seen by GI and general surgery. -Continue IV antibiotics, advance diet as tolerated. -Colonoscopy in 6 weeks after recovery. #Anxiety/Bipolar -Continue prozac, buspar, and prn alprazolam #Prediabetes-Stable, no indication for SSI at this time #Tobacco use-continue NicoDerm patch DVT prophylaxis- sc lovenox Disposition-discharge home tomorrow after tolerating low fiber diet Admission and Anticipated Discharge Date Admission Date: December 25, 2022 Subjective Pt seen, states that he would like to go home. Had been having pain earlier and was tolerating liquid diet. Would like to be advanced to low fiber diet. States he received pain medication and it seemed to be helping. Review of Systems Review of Systems: All systems reviewed & are unremarkable except as noted in Subjective Physical Exam Physical Exam: General: Alert, oriented. No acute distress Skin: No noted rashes or bruises Psych: Appropriate mood and affect Neuro: No gross deficits HEENT: NC/AT Chest: Nontender to palpation. CV: RRR, Normal s1, s2. No murmurs appreciated Resp: Breath sounds clear bilaterally, no increased effort of breathing. No crackles/rhonchi/rales. Abdomen: Soft, nontender, nondistended. No guarding. No organomegaly appreciated. Extremities: No edema in lower extremities bilaterally. Results & Data Results & Data Vital Signs (Past 12 Hours) Vital Signs Temp Pulse Pulse Resp BP Pulse Ox O2 Del Method 12/27/22 07:26 36.9 C 66 16 124/79 97 Room Air 12/26/22 22:11 36.9 C 54 L 18 117/76 96 Room Air
[2022-12-27] MEDS ORDERED: oxyCODONE/ACETAMINOPHEN 5mg/325mg TAB PO PRN (10:16)
--- NOTE | 2022-12-27 10:21 | Surgery Progress Note ---
Date of Service December 27, 2022 Assessment & Plan (1) Diverticulitis: Plan: Improving , some pain last evening into today leukocytosis resolved, afebrile pain 6/10 today no n,v Plan: Continue IV Zosyn, would likely benefit from another day of IV abx. Will need total course of 14 days of IV and oral abx given concern for small abscess low fiber diet possibly for dinner PO Percocet prn pain ambulate hallway outpatient colonoscopy in 6 weeks low fiber diet at home during acute phase discussed with hospitalist. Dr. tariq has seen and examined patient agrees with above Admission and Anticipated Discharge Date Admission Date: December 25, 2022 Subjective having pain today and last evening starting at 5 pm no fevers or chills liquid stools no n,v tolerating full liquids pain about 6/10, still taking Dilaudid. Physical Exam Constitutional: WD/WN, vitals as above cooperative and comfortable; no acute distress, not ill appearing and not in distress Respiratory: normal respiratory effort; no respiratory distress Gastrointestinal (Abdomen): Inspection/Auscultation: abdomen normal to inspection; abdomen not distended Percussion/Palpation: + abdomen tender (Right mid to lower abdomen) and abdomen soft; no guarding, abdomen not rigid and abdomen not firm Skin: no rashes, warm and dry Psychiatric: Orientation: alert and oriented x 3 Results & Data Vital Signs (Past 12 Hours) Vital Signs Temp Pulse Resp BP Pulse Ox O2 Del Method 12/27/22 07:26 36.9 C 66 16 124/79 97 Room Air Laboratory Results 12/27/22 12/27/22 12/27/22 Range/Units 06:12 06:12 02:54 WBC 8.84 (4.8-10.8) K/ul RBC 4.45 L (4.70-6.10) M/uL Hgb 14.1 (14.0-18.0) g/dl Hct 40.9 L (42.0-52.0) % MCV 91.9 (80.0-100.0) fL MCH 31.7 (25.0-34.0) pg MCHC 34.5 (32.0-36.0) g/dL RDW Std Deviation 41.3 (36.4-46.3) fL RDW Coeff of Esteban 12.4 (11.5-14.5) % Plt Count 259 (130-400) K/uL MPV 9.5 (9.4-12.4) fL Sodium 139 (136-145) mmol/L Potassium 3.8 (3.5-5.1) mmol/L Chloride 109 H (98-107) mmol/L Carbon Dioxide 26 (21-32) mmol/L Anion Gap 4 (3-11) BUN 7 (6-23) mg/dl Creatinine 0.80 (0.6-1.4) mg/dl Est Cr Clr Drug Dosing 134.7 ml/min Est GFR ( Amer) 129.5 ml/min Est GFR (Non-Af Amer) 111.7 ml/min BUN/Creatinine Ratio 8.8 L (10-20) Glucose 91 (70-99(Fasting)) mg/dl Calcium 8.6 (8.6-10.3) mg/dl Stool Occult Bld Scrn Negative (Negative)
[2022-12-27] MEDS: oxyCODONE/ACETAMINOPHEN 5mg/325mg TAB PO PRN ×2 (12:17→15:57)
[2022-12-27] MEDS: ALPRAZolam 0.5 MG TABLET PO PRN (22:18)
[2022-12-28] MEDS: ENOXAPARIN INJ 40 MG/0.4 ML SYR SQ SCH (05:55)
[2022-12-28 07:38] LABS: Basophils # (auto) 0.09 K/uL (0.00-0.20); Basophils % (auto) 1.2 %; Eosinophils # (auto) 0.38 K/uL (0.00-0.50); Eosinophils % (auto) 5.2 %; Hematocrit (blood only) 43.7 % (42.0-52.0); Hemoglobin 15.5 g/dl (14.0-18.0); Immature Granulocytes # (auto) 0.01 K/uL (0.01-0.20); Immature Granulocytes % (auto) 0.1 %; Lymphocytes # (auto) 2.75 K/uL (1.20-3.40); Lymphocytes % (auto) 37.5 %; Mean Corpuscular Hemoglobin 31.6 pg (25.0-34.0); Mean Corpuscular Hgb Conc 35.5 g/dL (32.0-36.0); Mean Platelet Volume 9.4 fL (9.4-12.4); Monocytes # (auto) 0.66 K/uL (0.11-0.59); Neutrophils # (auto) 3.44 K/uL (1.40-6.50); Platelet Count 276 K/uL (130-400); RDW Coefficient of Variation 12.1 % (11.5-14.5); RDW Standard Deviation 39.5 fL (36.4-46.3); Red Blood Count 4.91 M/uL (4.70-6.10); White Blood Count 7.33 K/ul (4.8-10.8)
[2022-12-28] MEDS: busPIRone 5 MG TAB PO SCH (08:03)
[2022-12-28 08:04] LABS: Albumin Globulin Ratio 1.4 (0.9-2); Albumin Level 4.3 gm/dl (3.4-5.0); BUN Creatinine Ratio 9.2 (10-20); Bilirubin,Total 0.6 mg/dl (0.2-1.0); Calcium 9.4 mg/dl (8.6-10.3); Creatinine Clr Calc Pharmacy 122.6 ml/min; Est GFR (African American) 124.2 ml/min; Est GFR (Non-African American) 107.2 ml/min; Magnesium 2.1 mg/dl (1.7-2.4); Total Protein 7.3 gm/dl (6.0-8.3)
[2022-12-28] MEDS: FLUoxetine HCL 20 MG CAP PO SCH (08:04)
[2022-12-28] MEDS: NICOTINE 14 MG/24 HR PATCH TD SCH (08:04)
[2022-12-28] MEDS ORDERED: CIPROFLOXACIN 500 MG TAB PO STA (08:07)
[2022-12-28] MEDS ORDERED: metroNIDAZOLE 500 MG TAB PO STA (08:07)
--- NOTE | 2022-12-28 08:45 | Discharge Summary ---
Discharge Summary Date of Service December 28, 2022 Notes For Next Care Provider Close follow up of his pain and symptoms, tolerance of food and advancing of diet (discharged on low fiber diet with instructions to advance as tolerated over the next week) Colonoscopy in 6 weeks after recovery. Also repeat CT scan at that time to ensure resolution of abscess. Medication Changes From Visit Cipro 500mg BID x 12 more days Flagyl 500mg TID x 12 more days Percocet 5mg/325 mg q8h PRN for 3 days Colace 100mg BID while taking percocet Admission HPI Per Admitting Provider Mr. Barahona is a 41 year old gentleman with history of bipolar d/o/anxiety, current tobacco use, prediabetes, who presented to [facility] ED due to acute onset abdominal pain that started the evening of 12/25. Patient states he was in usual stated of health when he noted a sharp, predominately RLQ pain. 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 He denies any changes to his bowel habits, stating all of his stools have been "normal." He denies any bloody output, to include melena, hematochezia. He denies nausea or vomiting, or any infectious concerns for that matter. Patient denies ever having cscope or egd. Upon arrival to ED, patient's VS were stable. Labs revealed leukocytosis to 14.35. CT AP revealed fat stranding in RLQ, with a fluid collection in lateral wall of cecum 19x24 mm, appendix appeared normal. Surgery was consulted, who felt there was no urgent need for surgery per ED provider--and to manage patient for diverticulitis. s/p CTX and flagyl Patient to be admitted for IV abx and further management of diverticulitis with abscess formation Admission Exam Per Admitting Provider GENERAL APPEARANCE: AxOx4, flat effect HEENT: NC, AT. MMM. EOMI, clear conjunctiva, oropharynx clear. NECK: Supple without lymphadenopathy. No stiffness or restricted ROM. HEART: Normal rate and regular rhythm, normal S1/S1, no m/r/g LUNGS: CTAB, moving air well. No crackles or wheezes are heard. ABDOMEN: Soft, nontender, nondistended with good bowel sounds heard. BACK: No CVAT, no obvious deformity. EXTREMITIES: Without cyanosis, clubbing or edema. NEUROLOGICAL: Grossly nonfocal. Alert and oriented, moving all 4 extremities. CN not formally tested but appear grossly intact. Principal Dx & Hospital Course #1 = Principal Diagnosis (1) Diverticulitis: (2) Anxiety: (3) Bipolar 2 disorder: (4) Prediabetes: Plan Mr. Barahona is a 41 year old gentleman with history of bipolar, anxiety, current tobacco use and prediabetes who was admitted for management and evaluation of diverticulitis with abscess formation. Diverticulitis with possible small abscess -CT showed Wall thickening and numerous diverticula in the cecum compatible with cecal diverticulitis. There may be a small abscess in the lateral colon wall versus atypical appearance of inflamed colonic. No griffin perforation. The appendix is normal -appeared well, non toxic, leukocytosis resolved on discharge. -Treated with IV Zosyn for 2 days, discharged with PO cipro/Flagyl for an additional 12 days (14 days of treatment in total) -Seen by GI and general surgery. -Advance diet as tolerated- discharged on low fiber diet with instructions to advance at home over the next week as tolerated. -Pt still with significant pain on discharge (4/10) after 48hours of IV antibiotics but requesting to go home as it was his birthday. Scheduled for follow up with PCP's office in two days. -Discharged with Percocet 5mg/325mg q8h PRN for pain for 3 days and Colace 100mg BID while taking it with close PCP follow up. -Anticipate pain decreasing as infection clears, advised cautious use of Percocet with home Xanax. -Colonoscopy in 6 weeks after recovery. Also repeat CT scan at that time to ensure resolution of abscess. Anxiety/Bipolar Continue prozac, buspar, and prn alprazolam Prediabetes Stable, no indication for SSI Tobacco use smoking cessation recommended Used Nicotine patch while hospitalized Discharge Exam General: Alert, oriented. No acute distress Skin: No noted rashes or bruises Psych: Appropriate mood and affect Neuro: No gross deficits HEENT: NC/AT Chest: Nontender to palpation. CV: RRR, Normal s1, s2. No murmurs appreciated Resp: Breath sounds clear bilaterally, no increased effort of breathing. No crackles/rhonchi/rales. Abdomen: Soft, nontender, nondistended. No guarding. No organomegaly appreciated. Extremities: No edema in lower extremities bilaterally. Updated Medication List Medication Instructions Recorded Confirmed Type alprazolam 0.5 mg tablet 0.5 mg PO DAILY PRN Anxiety 12/25/22 12/25/22 History buspirone 5 mg tablet 5 mg PO AMHS 12/25/22 12/25/22 History fluoxetine 40 mg capsule 40 mg PO QAM 12/25/22 12/25/22 History ciprofloxacin HCl 500 mg tablet 500 mg PO BID #24 tabs 12/28/22 Rx docusate sodium 100 mg capsule 100 mg PO BID #30 caps 12/28/22 Rx (Colace) metronidazole 500 mg tablet 500 mg PO TID #36 tabs 12/28/22 Rx oxycodone-acetaminophen 5 mg-325 1 tab PO Q8H PRN pain #9 tabs 12/28/22 Rx mg tablet (Percocet) Hospital Stay Data Consultations 12/25/22 14:58 ED Decision to Admit Stat 12/25/22 18:18 Consult Gastroenterology Routine Consult General Surgery Routine Diagnostic Imagining Performed 12/25/22 11:52 CT Abd and Pelvis [CT abd pelvis IV con only] Stat Abdomen/Pelvis CT 12/25/22 11:52 CT abd pelvis IV con only CLINICAL HISTORY: RLQ pain, gauding TECHNIQUE: Helical axial images of the abdomen and pelvis were obtained and displayed. Automated dose lowering techniques and/or adjustment according to patient size were utilized for this exam. This exam was performed with intravenous contrast. CT DOSE: 1121.73 mGy.cm COMPARISON: None available at the time of this dictation. FINDINGS: Lower chest: No acute abnormality. Liver: Unremarkable. No focal lesions are seen. Gallbladder and biliary tree: The gallbladder is contracted. No intra- or extrahepatic biliary ductal dilation. Pancreas: Unremarkable, no focal lesions. Spleen: Splenule is incidentally noted. Adrenals: Unremarkable. Kidneys and ureters: Unremarkable. Bladder: Limited evaluation due to underdistention. Reproductive organs: Unremarkable. Bowel: There is focal wall thickening in the cecum. Numerous diverticula are seen in the ascending colon. The appendix is normal. Lymph nodes Retroperitoneal: Unremarkable. Pelvic: Unremarkable. Mesenteric: Subcentimeter nodes are seen most prominently in the right lower quadrant. Peritoneum: Fat stranding is noted in the right lower quadrant. There is a fluid collection in the region of the lateral wall of the cecum measuring approximately 19 x 24 mm in diameter. No evidence of pneumoperitoneum. Vessels: Unremarkable. Abdominal wall: Unremarkable. Bones: Unremarkable. IMPRESSION: Wall thickening and numerous diverticula in the cecum compatible with cecal diverticulitis. There may be a small abscess in the lateral colon wall versus atypical appearance of inflamed colonic. No griffin perforation. The appendix is normal. ACT 112: Negative or not required by law. Electronically signed by: Calvin Aguillon M.D. 12/25/2022 2:20 PM Pending Results Patient Have Any Pending Studies at Discharge: No Discharge Instructions Given to Patient (Per Discharging Provider) Mr. Barahona, You were admitted and treated for acute diverticulitis. We are discharging you home with antibiotics to take for an additional 12 more days. Please take as directed. You also requested pain medication to help with your pain. We are discharging you home with oral Percocet. We anticipate that as the antibiotics take care of the infection, your pain should become less. The Percocet can make you constipated so sending you home with a stool softener as well. Since you are also prescribed the benzodiazepine xanax by your primary care provider, we are very cautious with using a narcotic as well. Please try to not use these two medications at the same time. Should you find that your pain is worsening, please contact your primary care provider or return to the emergency room for further evaluation. You can slowly advance your diet over the next week from the low fiber diet to what you would normally eat at home. We do recommend a follow up CT scan to be ordered by your primary care provider. Please follow up with your primary care provider as scheduled in the next few days for close follow up and continued monitoring of your symptoms. Happy Birthday and it was a pleasure taking care of you during your time here. Total Time Total Time Spent Total Time Spent (In Minutes): > 30 minutes
== END 2022-12-28 09:59 | disposition home or self-care (01) | DRG 392 ==
LOC: ED 10:47 → EDINP 15:23 → SUATTDRO 15:23 → 3N 19:24